=== PATIENT | male | born 1985 | race African-American/Black ===

== ENCOUNTER 2017-08-01 14:48 | Emergency (ER) | payer OTHER ==
[2017-08-01 14:54] VITALS: O2SAT 96
--- NOTE | 2017-08-01 15:45 | EDPHY ---
H & P Time Seen by Provider: 08/01/17 15:25 HPI/ROS: CHIEF COMPLAINT: Low back pain x2 weeks HISTORY OF PRESENT ILLNESS: 31-year-old male complaining of acute low back pain for the past 2 weeks, worse after receiving a massage 3 days ago. 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 Pain is exacerbated with range of motion at the waist, better with lying supine. No incontinence no retention. No radiculopathy. No saddle anesthesia. No trauma. No abdominal pain. No fever or chills. No flu-like symptoms. No IV drug use. No recent surgeries or dental work. REVIEW OF SYSTEMS: A ten point review of systems was performed and is negative with the exception of the items mentioned in the HPI PAST MEDICAL & SURGICAL HISTORY: No pertinent medical or surgical history SOCIAL HISTORY:nonsmoker no drug use. PHYSICAL EXAM (Prior to examination, patient consented to physical exam, hands were washed and my usual and customary physical exam procedures followed) 1) GENERAL: Well-developed, well-nourished, alert and oriented. Appears to be in no acute distress. 2) HEAD: Normocephalic, atraumatic 3) HEENT: Pupils equal, round, reactive to light bilaterally. Sclera anicteric. Nasopharynx, oropharynx, clear, no lesions. 4) NECK: Full range of motion, no meningeal signs. 5) LUNGS: Clear auscultation bilaterally, no wheezes, no rhonchi, no retractions. 6) HEART: Regular rate and rhythm, no murmur, no heave, no gallop. 7) ABDOMEN: No guarding, no rebound, no focal tenderness, negative McBurney's, negative Ellis's, negative Rovsing's, negative peritoneal sign, 8) MUSCULOSKELETAL: Moving all extremities, no focal areas of tenderness, no obvious trauma. No peripheral edema or discoloration. 9) BACK: Reproducible paraspinous lumbar back pain with sitting up and movement. tender to palpation paraspinous lumbar muscle bilaterally. No CVA tenderness, no midline vertebral tenderness, no fluctuance, no step-off, no obvious trauma, no visual or palpable abnormality. Patella, Achilles reflexes intact to bilateral strength 5/5 10) SKIN: No rash, no petechiae. 11) NEURO: Awake, alert, and oriented to person, place and time. Answers questions appropriately. There were no obvious focal neurologic abnormalities. No cerebellar dysfunction. Normal steady gait. Upper and lower extremities bilaterally with strength 5 / 5, reflexes 2+.. DIFFERENTIAL DIAGNOSIS: In no particular order, including but not limited to, fracture, sprain/strain, cauda equina, spinal infectious etiology. MEDICAL DECISION MAKING Lower index of suspicion for cauda equina, epidural abscess, epidural hematoma, lumbar myositis, diskitis, as the patient is neurologically intact in the lower extremities, has patella and Achilles reflexes intact and equal bilaterally, has no neurologic deficits, no incontinence, no retention, no midline pain, no fluctuance, afebrile, no flulike symptoms. Pain may be secondary to muscular strain, may be secondary to discogenic etiology. At this point I do not identify definitive indication for emergent MRI, however he may necessitate this on an outpatient basis. Plan will be Flexeril, Lidoderm patch. Patient given acute back pain precautions. Patient verbalizes understanding of discharge instructions. I believe them be competent decision-makers. All questions and concerns have been addressed by me. Ample opportunity for questions have been provided . .Care of patient under supervision of [ secondary] supervising physician Dr Maldonado . Smoking Status: Never smoked Constitutional: Initial Vital Signs Temperature (C) 36.6 C 08/01/17 14:50 Heart Rate 70 08/01/17 14:50 Respiratory Rate 16 08/01/17 14:50 Blood Pressure 190/103 H 08/01/17 14:50 O2 Sat (%) 96 08/01/17 14:50 O2 Delivery Mode Room Air Allergies/Adverse Reactions: No Known Allergies Allergy (Verified 08/01/17 14:50) Home Medications: Medication Instructions Recorded Cyclobenzaprine [Flexeril 10 MG 10 mg PO TID #15 tab 08/01/17 (RX)] Lidocaine 5% [Lidoderm 5% Patch 1 ea TD BID #30 patch 08/01/17 (*)] methylPREDNISolone [Medrol Dose 4 mg PO DAILY #1 ea 08/01/17 [place]] MDM/Departure - Depart Disposition: Home, Routine, Self-Care Clinical Impression: Acute low back pain Qualifiers: Back pain laterality: bilateral Sciatica presence: without sciatica Qualified Code(s): M54.5 - Low back pain Condition: Good Instructions: Acute Low Back Pain (ED) Additional Instructions: Seek medical attention if you develop new or worsening pain, if you develop bladder or bowel dysfunction, numbness around your perineum, foot drop, or any other symptoms that concern you. Prescriptions: Cyclobenzaprine [Flexeril 10 MG (RX)] 10 mg PO TID #15 tab Lidocaine 5% [Lidoderm 5% Patch (*)] 1 ea TD BID #30 patch methylPREDNISolone [Medrol Dose [place]] 4 mg PO DAILY #1 ea Referrals: Jersey Chavez MD [Medical Doctor] - 5-7 days, call for appt.
[2017-08-01 16:11] VITALS: BP 153/106; PULSE 82; RESP 18; TEMP 98.4
== END 2017-08-01 16:09 | disposition home or self-care (01) ==
DX: M54.5 Low back pain (principal)